=== PATIENT | female | born 1990 | race Caucasian/White ===

== ENCOUNTER 2016-06-22 07:30 | Inpatient (IN) | payer BC ==
[~2016-06-22] VITALS: Ht 162.6 cm; Wt 83.5 kg
[2016-06-23] VITALS (13 sets, daily range): BP systolic 111–127; RESP 15–20; TEMP 97.3–97.7; Ht 162.6 cm; Wt 83.5 kg
[2016-06-23] MEDS ORDERED: MORPHINE PF 0.5 MG/ML 10 ML IV ONE (07:50)
[2016-06-23] MEDS ORDERED: MIDAZOLAM 2 MG/2 ML INJ IV ONE (07:50)
[2016-06-23] MEDS ORDERED: FENTANYL 100 MCG/2 ML AMP IV ONE (07:50)
[2016-06-23] MEDS ORDERED: OXYTOCIN 10 UNITS/ML VIAL IV ONE (07:50)
[2016-06-23] MEDS ORDERED: FAMOTIDINE 20 MG INJ IV ONE (10:30)
[2016-06-23] MEDS ORDERED: LIDOCAINE 1% BUFFERED 1 ML SYR INTRADERM PRN (10:30)
[2016-06-23] MEDS ORDERED: CEFAZOLIN (LD/OB) 100 ML IV ONE (10:30)
[2016-06-23] MEDS ORDERED: METOCLOPRAMIDE 10 MG/2 ML VIAL IV PUSH ONE (10:30)
[2016-06-23] MEDS ORDERED: LACT RINGERS 1,000 ML IV SCH (10:30)
[2016-06-23] MEDS ORDERED: NALOXONE 0.4 MG/ML AMP IV PRN (12:00)
[2016-06-23] MEDS ORDERED: DILAUDID 1 MG/ML AMP IV PRN (12:00)
[2016-06-23] MEDS ORDERED: OXYCODONE 5 MG TAB PO PRN (12:00)
[2016-06-23] MEDS ORDERED: MORPHINE 2 MG/ML SYR IV PRN ×2 (12:00)
[2016-06-23] MEDS ORDERED: MEPERIDINE 25 MG/ML IV PRN (12:00)
[2016-06-23] MEDS ORDERED: BUTORPHANOL 1 MG/ML VIAL IV PRN (12:00)
[2016-06-23] MEDS ORDERED: SALINE FLUSH 10 ML FLUSH PRN ×2 (12:00→12:55)
[2016-06-23] MEDS ORDERED: MORPHINE 4 MG/ML SYR IV PRN ×2 (12:00)
[2016-06-23] MEDS ORDERED: ONDANSETRON 4 MG VIAL IV PRN ×3 (12:00→12:55)
[2016-06-23] MEDS ORDERED: DIPHENHYDRAMINE 50 MG/ML VIAL IV PRN (12:00)
[2016-06-23] MEDS ORDERED: PROMETHAZINE 25 MG/ML VIAL IV PRN (12:00)
[2016-06-23] MEDS: OXYTOCIN 15 UNITS/250 ML NS 250 ML IV SCH ×2 (12:15→14:19)
[2016-06-23] MEDS ORDERED: TDaP 0.5 ML VIAL IM.VACC ONE (12:55)
[2016-06-23] MEDS ORDERED: MAG HYDROX 30 ML UDC PO PRN (12:55)
[2016-06-23] MEDS ORDERED: BISACODYL 10 MG SUPP RECTAL PRN (12:55)
[2016-06-23] MEDS ORDERED: SODIUM CHLORIDE 0.9% FLUSH BAG 500 ML IV PRN (12:55)
[2016-06-23] MEDS ORDERED: MEASLES,MUMPS,RUBELLA VAC SUBQ.VACC ONE (12:55)
[2016-06-23] MEDS: KETOROLAC 30 MG/ML VIAL IV SCH ×2 (13:27→17:37)
[2016-06-23] MEDS: MISOPROSTOL 200 MCG TAB PO SCH ×2 (13:29→17:36)
[2016-06-23] MEDS: LACT RINGERS 1,000 ML IV SCH ×2 (15:07→22:00)
[2016-06-23] MEDS: SALINE FLUSH 10 ML FLUSH SCH ×2 (20:00)
[2016-06-24] MEDS: KETOROLAC 30 MG/ML VIAL IV SCH ×2 (00:10→05:14)
[2016-06-24] MEDS: DOCUSATE SOD 100 MG CAP PO SCH ×3 (00:10→20:59)
[2016-06-24 01:28] VITALS: BP_SYST 102; RESP 20; TEMP 97.9
[2016-06-24 05:15] VITALS: BP_SYST 106; RESP 20; TEMP 98.1
[2016-06-24] MEDS: SODIUM CHLORIDE 0.9% FLUSH BAG 500 ML IV SCH (05:46)
[2016-06-24] MEDS: SALINE FLUSH 10 ML FLUSH SCH ×4 (08:00→20:00)
[2016-06-24 09:39] VITALS: BP_SYST 130; RESP 24; TEMP 98.9
[2016-06-24] MEDS: Ibuprofen 600 MG TAB PO SCH ×3 (11:41→23:30)
[2016-06-24 17:16] VITALS: BP_SYST 122; TEMP 98.1
[2016-06-24 17:17] VITALS: RESP 24
[2016-06-25] MEDS: Ibuprofen 600 MG TAB PO SCH ×2 (05:48→11:30)
[2016-06-25 05:49] VITALS: BP_SYST 118; RESP 16; TEMP 97.8
[2016-06-25] MEDS: SODIUM CHLORIDE 0.9% FLUSH BAG 500 ML IV SCH (06:00)
[2016-06-25] MEDS: SALINE FLUSH 10 ML FLUSH SCH ×2 (08:00)
[2016-06-25 08:42] VITALS: BP_SYST 118; RESP 16; TEMP 97.8
[2016-06-25] MEDS: DOCUSATE SOD 100 MG CAP PO SCH (09:25)
[2016-06-25 09:35] VITALS: BP_SYST 128; RESP 18; TEMP 97.9
== END 2016-06-25 12:50 | disposition home or self-care (01) | DRG 766 ==
LOC: LD 06-23 10:01 → OB 06-23 17:28
PROVIDERS: ADMIT Obstetrics & Gynecology; ATTEND Obstetrics & Gynecology
PROC: 10D00Z1 Extraction of Products of Conception, Low, Open Approach (ICD-10-PCS; principal; 2016-06-23)
PROC: 0UL70CZ Occlusion of Bilateral Fallopian Tubes with Extraluminal Device, Open Approach (ICD-10-PCS; 2016-06-23)
DX: O34.219 Maternal care for unspecified type scar from previous cesarean delivery (principal); N80.6 Endometriosis in cutaneous scar; N85.8 Other specified noninflammatory disorders of uterus; O69.81X0 Labor and delivery complicated by cord around neck, without compression, not applicable or unspecified; O99.334 Smoking (tobacco) complicating childbirth; Z3A.39 39 weeks gestation of pregnancy; Z37.0 Single live birth; Z23 Encounter for immunization
CPT/HCPCS: 82803; 85025; 85460; 86850; 86900; 86901; 86970; 88304